=== PATIENT | male | born 2000 | race Caucasian/White ===

== ENCOUNTER 2023-12-04 19:46 | Emergency (ER) | payer OTHER ==
[~2023-12-04] VITALS: Ht 185.4 cm; Wt 86.3 kg
[2023-12-04 20:18] LABS: BASO # 0.1 10^3/uL (0.0-0.2); BASO % 0.7 % (0.0-1.0); EOS # 0.2 10^3/uL (0.0-0.5); EOS % 2.2 % (0.0-3.0); HEMATOCRIT 45.1 % (42.0-52.0); HEMOGLOBIN 15.7 g/dl (13.5-17.5); MEAN CORPUSCULAR HEMOGLOBIN 29.8 pg (27.0-33.0); MEAN CORPUSCULAR HGB CONC 34.8 g/dl (32.0-36.5); MEAN CORPUSCULAR VOLUME 85.7 fl (80.0-96.0); MONO # 0.7 10^3/uL (0.0-0.8); NEUTROPHILS # 4.8 10^3/uL (1.5-8.5); NEUTROPHILS % 54.9 % (36.0-66.0); PLATELET COUNT, AUTOMATED 284 10^3/uL (150-450); RED BLOOD COUNT 5.26 10^6/uL (4.30-6.10); WHITE BLOOD COUNT 8.7 10^3/uL (4.0-10.0)
[2023-12-04 20:46] LABS: BLOOD UREA NITROGEN 14 MG/DL (9-23); CALCIUM LEVEL 9.8 MG/DL (8.5-10.1); CARBON DIOXIDE LEVEL 26 MMOL/L (20-31); CHLORIDE LEVEL 106 MMOL/L (98-107); CREATININE FOR GFR 0.93 MG/DL (0.70-1.30); GLOMERULAR FILTRATION RATE > 60.0 (>60); GLUCOSE, FASTING 108 MG/DL (60-100); MAGNESIUM LEVEL 2.3 MG/DL (1.8-2.4); POTASSIUM SERUM 3.9 MMOL/L (3.5-5.1); SODIUM LEVEL 140 MMOL/L (136-145)
[2023-12-04 21:30] VITALS: BP 134/73; TEMP 97.8; O2SAT 96
[2023-12-04 21:33] LABS: CPK CREATINE PHOSPHOKINASE 472 U/L (46-171)
[2023-12-04 21:43] LABS: CK-MB VALUE MASS 1.3 NG/ML (<3.6); MB/CK RELATIVE INDEX 0.27 (< OR =4)
[2023-12-04 21:47] LABS: FREE T4 1.55 NG/DL (0.89-1.76)
[2023-12-04 21:48] LABS: THYROID STIMULATING HORMONE 3.852 uIU/ML (0.55-4.78)
[2023-12-04] MEDS: NS 1,000 ML IV ONE (21:56)
[2023-12-04 22:15] LABS: CK-MB VALUE MASS 1.3 NG/ML (<3.6)
[2023-12-04 22:25] LABS: CPK CREATINE PHOSPHOKINASE 435 U/L (46-171); MB/CK RELATIVE INDEX 0.29 (< OR =4)
== END 2023-12-04 22:33 | disposition home or self-care (01) ==
LOC: M ED 19:46
DX: R07.9 Chest pain, unspecified (principal); R00.2 Palpitations; F17.200 Nicotine dependence, unspecified, uncomplicated; F10.10 Alcohol abuse, uncomplicated